=== PATIENT | male | born 1945 | race Caucasian/White ===

== ENCOUNTER 2019-02-26 09:57 | Inpatient (IN) | payer MEDICARE, MEDICAID ==
[~2019-02-26] VITALS: Ht 170.2 cm; Wt 70.9 kg
[~2019-02-26 09:57] MED LIST: FLUO-124 PO; HYDR-4009 PO; MELO-104 PO; METO-396 PO; PANT20TA3 PO; TAP5 PO
[2019-02-26] MEDS ORDERED: ONDANSETRON HCL 4MG/2ML INJ IV STA (10:34)
[2019-02-26] MEDS ORDERED: SODIUM CHLORIDE 0.9% 1,000 ML IV ONE (10:34)
[2019-02-26 10:47] LABS: BASOPHILS % 0.5 % (0.0-2.0); HEMOGLOBIN. 13.9 g/dL (14.0-18.0); LYMPHOCYTES % 22.3 % (20.0-50.0); MEAN CORPUSCULAR HEMOGLOBIN 27.9 pg (28.0-32.0); MEAN CORPUSCULAR VOLUME 84.4 fL (80.0-94.0); MEAN PLATELET VOLUME 9.6 fl (7.4-10.4); MONOCYTES % 7.8 % (2.0-8.0); NEUTROPHILS % 68.4 % (40.0-76.0); PLATELET 275 x1000/uL (130-400); RED BLOOD CELL COUNT 4.97 mill/uL (4.7-6.1); RED CELL DISTRIBUTION WIDTH 14.4 % (11.6-14.6)
[2019-02-26 10:54] LABS: CHLORIDE 106 mEq/L (98-107); PROTHROMBIN TIME 10.6 sec (9.6-11.0)
[2019-02-26] MEDS ORDERED: SODIUM CHLORIDE 0.9% 1000ML BAG (SEPSIS BOLUS) IV ONE (11:15)
[2019-02-26] MEDS ORDERED: VANCOMYCIN 1 G PREMIX 200 ML IV ONE (11:30)
[2019-02-26] MEDS ORDERED: PIPERACILLIN/TAZ 3.375G PREMIX 50 ML IV ONE (11:30)
[2019-02-26] MEDS ORDERED: IOHEXOL-300 100 ML BOTTLE ONE (12:17)
[2019-02-26 13:01] LABS: CLARITY URINE CLEAR (CLEAR); COLOR URINE YELLOW (YELLOW); KETONES URINE 1+ (NEGATIVE); LEUKOCYTE ESTERASE URINE NEGATIVE (NEGATIVE); NITRITE URINE NEGATIVE (NEGATIVE); OCCULT BLOOD URINE NEGATIVE (NEGATIVE); PROTEIN URINE NEGATIVE (NEGATIVE); UROBILINOGEN URINE 0.2 E.U./dL (0.2-1.0)
[2019-02-26] MEDS ORDERED: LEVOFLOXACIN 500MG PREMIX 100 ML IV SCH ×2 (13:15→16:50)
[2019-02-26] MEDS ORDERED: ACETAMINOPHEN 325MG TABLET PO PRN (13:15)
[2019-02-26] MEDS ORDERED: METRONIDAZOLE 500 MG PREMIX 100 ML IV SCH ×2 (13:15→16:49)
[2019-02-26] MEDS ORDERED: ONDANSETRON HCL 4MG/2ML INJ IV PRN (13:15)
[2019-02-26] MEDS ORDERED: MECLIZINE 25MG TABLET PO PRN (16:00)
[2019-02-26 21:00] VITALS: BP 106/66
[2019-02-27 00:49] VITALS: BP 129/77
[2019-02-27] MEDS: METRONIDAZOLE 500 MG PREMIX 100 ML IV SCH ×3 (03:44→18:00)
[2019-02-27] MEDS: DEXT 5%/0.45% NACL 1000ML 1,000 ML IV SCH ×3 (03:44→19:00)
[2019-02-27 04:00] VITALS: BP 109/65
[2019-02-27 06:48] LABS: BASOPHILS % 0.4 % (0.0-2.0); EOSINOPHILS % 0.8 % (0.0-5.0); HEMATOCRIT. 38.9 % (42.0-52.0); HEMOGLOBIN. 12.8 g/dL (14.0-18.0); LYMPHOCYTES % 13.3 % (20.0-50.0); MEAN CORPUSCULAR HEMOGLOBIN 27.8 pg (28.0-32.0); MEAN CORPUSCULAR VOLUME 84.8 fL (80.0-94.0); MEAN PLATELET VOLUME 10.2 fl (7.4-10.4); MONOCYTES % 9.4 % (2.0-8.0); NEUTROPHILS % 76.1 % (40.0-76.0); PLATELET 167 x1000/uL (130-400); RED BLOOD CELL COUNT 4.58 mill/uL (4.7-6.1); RED CELL DISTRIBUTION WIDTH 14.1 % (11.6-14.6)
[2019-02-27 07:04] LABS: CHLORIDE 111 mEq/L (98-107)
[2019-02-27 08:00] VITALS: BP 100/55
[2019-02-27] MEDS ORDERED: PNEUMOCOCCAL 23-VAL P-SAC VAC 0.5 ML IM ONE (08:00)
[2019-02-27] MEDS: FAMOTIDINE 20MG/2ML VIAL IV SCH (09:10)
[2019-02-27] MEDS: ENOXAPARIN 40MG/0.4ML SYR SUBCUT SCH (09:10)
[2019-02-27 12:00] VITALS: BP 110/62
[2019-02-27 16:00] VITALS: BP 115/70
[2019-02-27] MEDS ORDERED: LEVOFLOXACIN 500MG PREMIX 100 ML IV SCH (18:00)
[2019-02-27 20:00] VITALS: BP 119/71
[2019-02-28] VITALS: BP 113/60
[2019-02-28] MEDS: METRONIDAZOLE 500 MG PREMIX 100 ML IV SCH (01:40)
[2019-02-28 04:00] VITALS: BP 109/71
[2019-02-28] MEDS: DEXT 5%/0.45% NACL 1000ML 1,000 ML IV SCH (06:57)
[2019-02-28 08:00] VITALS: BP 112/70
[2019-02-28] MEDS: FAMOTIDINE 20MG/2ML VIAL IV SCH (08:26)
[2019-02-28] MEDS: ENOXAPARIN 40MG/0.4ML SYR SUBCUT SCH (08:26)
== END 2019-02-28 10:07 | disposition left against medical advice (07) | DRG 438 ==
LOC: ER 09:57 → 8WST 12:57 → EDBEDREQ 12:59 → ENRESERV 20:06
PROVIDERS: ADMIT Internal Medicine; ATTEND Internal Medicine
DX: K85.90 Acute pancreatitis without necrosis or infection, unspecified (principal); R65.11 Systemic inflammatory response syndrome (SIRS) of non-infectious origin with acute organ dysfunction; I67.82 Cerebral ischemia; K21.9 Gastro-esophageal reflux disease without esophagitis; E87.6 Hypokalemia; I10 Essential (primary) hypertension; G90.8 Other disorders of autonomic nervous system; K44.9 Diaphragmatic hernia without obstruction or gangrene; N40.0 Benign prostatic hyperplasia without lower urinary tract symptoms; Z79.1 Long term (current) use of non-steroidal anti-inflammatories (NSAID); Z79.84 Long term (current) use of oral hypoglycemic drugs; Z79.899 Other long term (current) drug therapy
CPT/HCPCS: 36415; 71045; 74177; 76700; 80048; 83036; 83605; 83880; 84484; 93005; 96361; 96365; 96375; 97162; 99291; J1650; J1956; J2405; J2543; J3370; J3490; J7030; Q9967

== ENCOUNTER 2023-11-27 09:24 | Emergency (ER) | payer MEDICARE, MEDICAID ==
[~2023-11-27] VITALS: Ht 177.8 cm; Wt 75.0 kg
[~2023-11-27 09:24] MED LIST changes: +ASPI-1497 PO; +DOXY-244 PO; -FLUO-124 PO; +FLUO20CA39 PO; +METH-371 PO; +OMEP20TA23 PO; +PANT20TA17 PO; -PANT20TA3 PO; +TAMS-11 PO; -TAP5 PO
[2023-11-27 09:34] VITALS: O2SAT 97
[2023-11-27] MEDS: SODIUM CHLORIDE 0.9% 1,000 ML IV ONE ×2 (10:09→11:06)
[2023-11-27 10:21] LABS: HEMATOCRIT. 32.2 % (42.0-52.0); HEMOGLOBIN. 10.1 g/dL (14.0-18.0); MEAN CORPUSCULAR HEMOGLOBIN 22.9 pg (28.0-32.0); MEAN CORPUSCULAR HGB CONC 31.3 g/dL (31.0-37.0); MEAN PLATELET VOLUME 9.3 fl (7.4-10.4); PLATELET 247 x1000/uL (130-400); RED BLOOD CELL COUNT 4.41 mill/uL (4.7-6.1); RED CELL DISTRIBUTION WIDTH 15.8 % (11.6-14.6); WHITE BLOOD COUNT 8.1 x1000/uL (4.5-11.0)
[2023-11-27 10:23] LABS: DIFFERENTIAL COMMENT 1
[2023-11-27 10:36] LABS: ACETAMINOPHEN < 2 ug/mL (10-30); ALANINE AMINOTRANSFERASE 256 IU/L (10-49); ASPARTATE AMINOTRANSFERASE 303 IU/L (<34); BILIRUBIN TOTAL 0.4 mg/dL (0.1-1.0); CARBON DIOXIDE 21 mEq/L (21-32); CHLORIDE 100 mEq/L (98-107); CREATININE 1.2 mg/dL (0.6-1.3); GLUCOSE 138 mg/dL (70-105); INR 1.1; PROTHROMBIN TIME 11.8 sec (9.6-11.0); SODIUM 131 mEq/L (136-145); UREA NITROGEN BLOOD 37 mg/dL (9-23)
[2023-11-27 10:37] LABS: ETHANOL BLOOD < 10 mg/dL (<10); LACTIC ACID 3.8 mmol/L (0.4-2.0)
[2023-11-27 10:38] LABS: TROPONIN I HIGH SENSITIVITY 130 ng/L (3.0-53)
[2023-11-27 10:57] LABS: CLARITY URINE CLOUDY (CLEAR); COLOR URINE DARK YELLOW (YELLOW); GLUCOSE URINE NEGATIVE (NEGATIVE); KETONES URINE TRACE (NEGATIVE); LEUKOCYTE ESTERASE URINE TRACE (NEGATIVE); NITRITE URINE NEGATIVE (NEGATIVE); OCCULT BLOOD URINE 3+ (NEGATIVE); PH URINE 5.5 (4.5-8.0); PROTEIN URINE 2+ (NEGATIVE); SPECIFIC GRAVITY URINE 1.025 (1.005-1.030)
[2023-11-27] MEDS: PIPERACILLIN/TAZO 3.375G/50ML 50 ML IV ONE (11:06)
[2023-11-27 11:14] LABS: MUCUS URINE TRACE /lpf (NONE/TRACE)
[2023-11-27 11:15] LABS: RBC URINE 0-2 /hpf (0-2); WBC URINE 0-2 /hpf (0-2)
[2023-11-27 11:16] LABS: BACTERIA URINE 3+; SQUAMOUS EPITHELIAL CELL URINE NONE SEEN /lpf (RARE/1+)
[2023-11-27 11:29] LABS: *AMPHETAMINES SCREEN URINE NEGATIVE (NEGATIVE); *BARBITURATES SCREEN URINE NEGATIVE (NEGATIVE); *BENZODIAZEPINES SCREEN URINE NEGATIVE (NEGATIVE); *COCAINE SCREEN URINE NEGATIVE (NEGATIVE); CANNABINOID URINE SCREEN NEGATIVE (NEGATIVE); ECSTASY MDMA SCREEN URINE NEGATIVE (NEGATIVE); METHADONE URINE SCREEN Neg (NEGATIVE); OPIATES URINE SCREEN NEGATIVE (NEGATIVE); PHENCYCLIDINE URINE SCREEN NEGATIVE (NEGATIVE)
[2023-11-27] MEDS: VANCOMYCIN 1G PREMIX 200 ML IV ONE (11:34)
[2023-11-27 12:24] LABS: MICROCYTOSIS 2+; PLATELET ESTIMATE NORMAL
[2023-11-27 12:28] LABS: TROPONIN I HIGH SENSITIVITY 146 ng/L (3.0-53)
[2023-11-27 15:45] VITALS: BP 119/63; PULSE 74; RESP 18; TEMP 97.9
== END 2023-11-27 16:10 | disposition short-term general hospital (02) ==
LOC: ER 09:53
DX: A41.9 Sepsis, unspecified organism (principal); R65.20 Severe sepsis without septic shock; R55 Syncope and collapse; R79.89 Other specified abnormal findings of blood chemistry; N39.0 Urinary tract infection, site not specified; Z20.822 Contact with and (suspected) exposure to COVID-19; Z79.899 Other long term (current) drug therapy
CPT/HCPCS: 80053; 80305; 81003; 80307; 80329; 80320; 82962; 83880; 83605; 83690; 85025; 85610; 87040; 87086; 84484; 36415; 84145; 71045; 70450; 74176; 93005; 96367; 96361; 96365; 99291; 87426; J2543; J3370; J7030; 99285; G0480